=== PATIENT | female | born 1945 | race Caucasian/White ===

== ENCOUNTER 2017-06-19 05:58 | Day surgery (SDC) | payer MEDICARE, OTHER ==
[2017-06-17 10:09] LABS: BASOPHILS # (AUTO) 0.1 X10'3 (0-0.2); BASOPHILS % (AUTO) 0.7 % (0-1); EOSINOPHILS # (AUTO) 0.2 X10'3 (0-0.9); EOSINOPHILS % (AUTO) 2.1 % (0-6); HEMATOCRIT 34.3 % (35.0-45.0); HEMOGLOBIN 11.6 g/dl (12.0-16.0); LYMPHOCYTES % (AUTO) 22.5 % (21-51); MEAN CORPUSCULAR HEMOGLOBIN 29.8 PG (27.0-31.0); MEAN CORPUSCULAR HGB CONC 33.8 % (33.0-36.5); MEAN CORPUSCULAR VOLUME 88.4 FL (78-98); MONOCYTES # (AUTO) 0.7 X10'3 (0-0.9); MONOCYTES % (AUTO) 7.7 % (2-12); NEUTROPHILS # (AUTO) 5.9 X10'3 (1.8-7.7); PLATELET COUNT 264 X10'3 (140-440); RED BLOOD COUNT 3.89 X10'6 (4.20-5.60); RED CELL DISTRIBUTION WIDTH 13.7 % (11.5-14.5); WHITE BLOOD COUNT 8.7 X10'3 (4.5-11.0)
[2017-06-17 10:22] LABS: PARTIAL THROMBOPLASTIN TIME 25 SECONDS (22-32); PROTHROMBIN TIME 9.9 SECONDS (9.0-12.0)
[2017-06-17 10:27] LABS: ALANINE AMINOTRANSFERASE 30 U/L (12-78); ALBUMIN 3.4 G/DL (3.4-5.0); ALBUMIN/GLOBULIN RATIO 0.9 (1.1-1.5); ALKALINE PHOSPHATASE 79 IU/L (46-116); ANION GAP 11 (8-16); ASPARTATE AMINO TRANSFERASE 14 U/L (10-37); BILIRUBIN,TOTAL 0.3 MG/DL (0.1-1.0); BLOOD UREA NITROGEN 23 MG/DL (7-18); BUN/CREATININE RATIO 21.1 (6.6-38.0); CALCIUM 9.5 MG/DL (8.5-10.1); CHLORIDE 105 MMOL/L (99-107); CREATININE 1.09 MG/DL (0.40-0.90); GLUCOSE 260 MG/DL (70-104); POTASSIUM 4.8 MMOL/L (3.5-5.1); SODIUM 141 MMOL/L (135-145); TOTAL PROTEIN 7.2 G/DL (6.4-8.2); eGFR 49 ML/MIN
[2017-06-19] VITALS (13 sets, daily range): BP systolic 115–153; BP diastolic 51–75
[~2017-06-19] VITALS: Ht 160 cm; Wt 84.8 kg
[~2017-06-19 05:58] MED LIST: AMLO2.5T2 PO; ATOR10TA70 PO; GABA-530 PO; LISI40TA4 PO; METF1000 PO; METF10002 PO; METO-539 PO
[2017-06-19] MEDS ORDERED: insulin Lispro (HumaLOG) vial - multi-dose SQ SCH (06:30)
[2017-06-19] MEDS ORDERED: METF500T7 PO (06:30)
[2017-06-19] MEDS ORDERED: CHOL10002 PO (06:30)
[2017-06-19] MEDS ORDERED: glucagon, human recombinant 1mg kit SUBCUT PRN (06:30)
[2017-06-19] MEDS ORDERED: diphenhydrAMINE 25mg capsule PO PRN (06:30)
[2017-06-19] MEDS ORDERED: dextrose 50%-water 50ml dispensing syringe IV PRN ×2 (06:30)
[2017-06-19] MEDS ORDERED: LORazepam 0.5 MG tablet PO PRN (06:30)
[2017-06-19] MEDS ORDERED: GABA-532 PO (06:30)
[2017-06-19] MEDS ORDERED: AMLO-94 PO (06:30)
[2017-06-19] MEDS ORDERED: dextrose ORAL solution 15 GM/59 ML bottle PO PRN ×2 (06:30)
[2017-06-19] MEDS ORDERED: nitroGLYCERIN 0.4mg SUBLingual tab SL PRN (06:30)
[2017-06-19] MEDS ORDERED: normal saline 1000ml 1,000 ML IV SCH (06:30)
[2017-06-19] MEDS ORDERED: pneumococcal 23-VAL P-sac vacc 25 mcg/0.5ml vial IMVAC ONE (07:15)
[2017-06-19] MEDS ORDERED: midazolam 2 mg/2 ml injection ONE (11:08)
[2017-06-19] MEDS ORDERED: LIDOcaine 1%/PF (10mg/ml) 5ml vial ONE (11:08)
[2017-06-19] MEDS ORDERED: fentaNYL/PF 50MCG/1 ML 2ML syringe ONE (11:08)
[2017-06-19] MEDS ORDERED: iohexol 350 MG/ML 50ML vial IV ONE (11:08)
[2017-06-19] MEDS ORDERED: iohexol 350MG/ML 100ml bottle IV ONE (11:09)
[2017-06-19] MEDS ORDERED: ondansetron/PF 4mg/2ml inj IV PRN (12:45)
[2017-06-19] MEDS ORDERED: OXAZEpam 15mg capsule PO PRN (12:45)
[2017-06-19] MEDS ORDERED: proCHLORperazine 10 MG/2 ml inj IV PRN (12:50)
[2017-06-19] MEDS ORDERED: HYDROcodone/acetaminophen 5mg/325mg tablet PO PRN (12:50)
[2017-06-19] MEDS ORDERED: HYDROcodone/acetaminophen 10/325mg tab PO PRN (12:50)
[2017-06-19] MEDS ORDERED: insulin glargine (Lantus) pen - multi-dose SQ SCH (21:00)
== END 2017-06-19 19:00 | disposition home or self-care (01) ==
LOC: SSTAY O 05:58
PROVIDERS: ATTEND Internal Medicine Cardiovascular Disease
DX: I25.10 Atherosclerotic heart disease of native coronary artery without angina pectoris (principal); I34.1 Nonrheumatic mitral (valve) prolapse; I34.0 Nonrheumatic mitral (valve) insufficiency; I10 Essential (primary) hypertension; E78.5 Hyperlipidemia, unspecified; I42.1 Obstructive hypertrophic cardiomyopathy; E11.9 Type 2 diabetes mellitus without complications; Z79.84 Long term (current) use of oral hypoglycemic drugs; Z72.89 Other problems related to lifestyle; Z79.01 Long term (current) use of anticoagulants; Z98.890 Other specified postprocedural states; Z79.899 Other long term (current) drug therapy
CPT/HCPCS: 36415; 71046; 80053; 82948; 85025; 85610; 85730; 93005; 93458; 99152; A6257; C1760; C1769; J1644; J1815; J2001; J2250; J3010; J7030; Q0163; Q9967; A4620

== ENCOUNTER 2017-06-27 05:37 | Day surgery (SDC) | payer MEDICARE, OTHER ==
[2017-06-25 12:23] LABS: BASOPHILS % (AUTO) 0.4 % (0-1); EOSINOPHILS # (AUTO) 0.2 X10'3 (0-0.9); EOSINOPHILS % (AUTO) 1.5 % (0-6); LYMPHOCYTES # (AUTO) 1.8 X10'3 (1.1-4.8); LYMPHOCYTES % (AUTO) 15.4 % (21-51); MEAN CORPUSCULAR HEMOGLOBIN 29.7 PG (27.0-31.0); MEAN CORPUSCULAR HGB CONC 34.1 % (33.0-36.5); MEAN CORPUSCULAR VOLUME 87.2 FL (78-98); MEAN PLATELET VOLUME 8.2 FL (7.4-10.4); MONOCYTES # (AUTO) 0.6 X10'3 (0-0.9); MONOCYTES % (AUTO) 4.8 % (2-12); NEUTROPHILS # (AUTO) 9.2 X10'3 (1.8-7.7); NEUTROPHILS % (AUTO) 77.9 % (42-75); PRE OP HEMATOCRIT 34.8 % (35.0-45.0); PRE OP HEMOGLOBIN 11.9 g/dL (12.0-16.0); PRE OP PLATELET COUNT 285 X10'3 (140-440); RED CELL DISTRIBUTION WIDTH 14.2 % (11.5-14.5)
[2017-06-25 12:24] LABS: CLARITY,URINE TURBID (Clear); COLOR,URINE YELLOW (Yellow); GLUCOSE, URINE NEGATIVE (Neg); KETONES,URINE NEGATIVE (Neg); LEUKOCYTE ESTERASE ,URINE LARGE (Neg); NITRITES, URINE NEGATIVE (Neg); OCCULT BLOOD,URINE MODERATE (Neg); PROTEIN,URINE TRACE mg/dl (Neg); UROBILINOGEN,URINE 0.2 E.U/dL (0.2-1.0)
[2017-06-25 12:27] LABS: UA COLLECTION TYPE CLN CATCH MIDSTREAM
[2017-06-25 12:29] LABS: WBC,URINE TNTC /HPF (0-4)
[2017-06-25 12:33] LABS: BACTERIA,URINE 2+ /HPF (Neg); RBC,URINE 0-2 /HPF (0-2); SQUAMOUS EPITHELIAL CELL,UR MODERATE /LPF (FEW)
[2017-06-25 12:34] LABS: HEMOGLOBIN A1C 7.7 % (4.5-6.2)
[2017-06-25 12:38] LABS: PRE OP PROTIME 9.9 SECONDS (9.0-12.0)
[2017-06-25 12:45] LABS: ALBUMIN 3.5 G/DL (3.4-5.0); ALBUMIN/GLOBULIN RATIO 0.9 (1.1-1.5); ALKALINE PHOSPHATASE 94 IU/L (46-116); BLOOD UREA NITROGEN 27 MG/DL (7-18); BUN/CREATININE RATIO 23.5 (6.6-38.0); CALCIUM 9.2 MG/DL (8.5-10.1); CHLORIDE 103 MMOL/L (99-107); CREATININE 1.15 MG/DL (0.40-0.90); PRE OP ALT 27 U/L (30-65); PRE OP ANION GAP 12 (8-16); PRE OP AST 13 U/L (10-37); PRE OP BILIRUB, TOTAL 0.4 MG/DL (0.0-1.0); PRE OP POTASSIUM 4.8 MMOL/L (3.4-5.1); PRE OP SODIUM 140 MMOL/L (135-145); TOTAL CARBON DIOXIDE 25.3 MMOL/L (24-32); TOTAL PROTEIN 7.3 G/DL (6.4-8.2); eGFR 46 ML/MIN
[2017-06-25 12:48] LABS: PRE OP GLUCOSE 254 MG/DL (70-104)
[~2017-06-27] VITALS: Ht 160 cm; Wt 84.1 kg
[2017-06-27] VITALS (32 sets, daily range): BP systolic 90–146; BP diastolic 42–70
[~2017-06-27 05:37] MED LIST changes: +AMLO10TA13 PO; -AMLO2.5T2 PO; +CHOL10002 PO; +DOCUMENT DATE & TIME OF BETA-BLOCKER PO ONE; -GABA-530 PO; +GABA-532 PO; -METF1000 PO; -METF10002 PO; +METF500T7 PO; +MULT-1085 PO; +ceFOXitin 2 GM ADDvantage bag 100 ML IV ONE; +famotidine 20mg tablet PO ONE
[2017-06-27] MEDS ORDERED: LIDOcaine 1% (10mg/ml) 2ml vial ONE (06:00)
[2017-06-27] MEDS: ringers solution, lacted 1,000 ML IV SCH ×2 (06:07→17:31)
[2017-06-27] MEDS ORDERED: clindamycin phosphate 40gm vag cream ONE (06:50)
[2017-06-27] MEDS ORDERED: BUPIVAcaine/PF 2.5 mg/ml (0.25%) 30ml vial ONE ×2 (06:51→06:52)
[2017-06-27] MEDS ORDERED: epiNEPHrine 1 mg/ml inj ONE (06:51)
[2017-06-27] MEDS ORDERED: neomy sulf/polymyxin B sulf. GU irrigation 1ml amp IR ONE ×2 (06:52→09:35)
[2017-06-27] MEDS ORDERED: vasoPRESSIN 20 units/ml inj. ONE (06:52)
[2017-06-27] MEDS ORDERED: midazolam 2 mg/2 ml injection ONE (07:06)
[2017-06-27] MEDS ORDERED: morphine sulfate /PF 0.5 MG/ML 10mL ampul ONE (07:06)
[2017-06-27] MEDS ORDERED: LIDOcaine 2% (20mg/ml) 5ml vial ONE (07:06)
[2017-06-27] MEDS ORDERED: fentaNYL/PF 50MCG/1 ML 2ML syringe ONE (07:08)
[2017-06-27] MEDS ORDERED: propofol 1000mg/100ml bottle 100 ML IV ONE (07:22)
[2017-06-27] MEDS ORDERED: propofol (Diprivan) 10mg/ml 100ml bottle IV ONE (07:24)
[2017-06-27] MEDS ORDERED: dexamethasone sod phosphate 4mg/ml inj. ONE (08:21)
[2017-06-27] MEDS ORDERED: ondansetron/PF 4mg/2ml inj ONE (08:21)
[2017-06-27] MEDS ORDERED: rocuronium 10mg/ml inj IV ONE (08:21)
[2017-06-27] MEDS ORDERED: phenylephrine 10mg/ml inj IV ONE (08:21)
[2017-06-27] MEDS ORDERED: ePHEDrine 50MG/ML INJ. ONE (08:21)
[2017-06-27] MEDS ORDERED: ringers solution, lacted 1,000 ML IV SCH (08:58)
[2017-06-27] MEDS ORDERED: meperidine/PF 50mg/ml syringe IV PRN (09:00)
[2017-06-27] MEDS ORDERED: HYDROmorphone inj. 0.5 MG/0.5 ML DISP.SYRIN IV PRN ×2 (09:00)
[2017-06-27] MEDS ORDERED: ondansetron/PF 4mg/2ml inj IV PRN (09:00)
[2017-06-27] MEDS ORDERED: fentaNYL/PF 50MCG/1 ML 2ML syringe IV PRN ×2 (09:00)
[2017-06-27] MEDS ORDERED: proCHLORperazine 10 MG/2 ml inj IV PRN (09:00)
[2017-06-27] MEDS ORDERED: neostigmine methylsulfate 1 MG/ML 10ml vial ONE (10:46)
[2017-06-27] MEDS ORDERED: glycopyrrolate 0.2mg/ml inj ONE (10:46)
[2017-06-27] MEDS ORDERED: ketorolac trometh. 30mg/ml inj. ONE (10:47)
[2017-06-27] MEDS ORDERED: mag hydrox/Alum hydrox/simeth 30ml oral suspension PO PRN (10:50)
[2017-06-27] MEDS ORDERED: HYDROcodone/acetaminophen 10/325mg tab PO PRN ×2 (10:50)
[2017-06-27] MEDS ORDERED: metoclopramide 5 mg/ml inj IV PRN (10:50)
[2017-06-27] MEDS ORDERED: diphenhydrAMINE 50 mg/ml inj IV PRN (10:50)
[2017-06-27] MEDS ORDERED: normal saline 500ml IV soln 500 ML IV PRN (10:50)
[2017-06-27] MEDS ORDERED: LORazepam 2 mg/ml vial IV PRN (10:50)
[2017-06-27] MEDS ORDERED: albuterol 2.5 MG/3 ML nebule NEB ONE (12:25)
[2017-06-27] MEDS: simethicone 80mg chew tab PO SCH ×2 (13:00→17:30)
[2017-06-27] MEDS ORDERED: insulin regular, human 10 units/0.1 ml syringe IV ONE ×2 (13:35→14:25)
[2017-06-27] MEDS: METFORMIN HCL 500 MG PO SCH (20:00)
[2017-06-27] MEDS: docusate sod 100mg capsule PO SCH (20:38)
[2017-06-27] MEDS: gabapentin 300mg capsule PO SCH (20:39)
[2017-06-27] MEDS: lisinopril 20mg tablet PO SCH (20:41)
[2017-06-28] VITALS: BP 129/71
[2017-06-28 06:01] LABS: BASOPHILS % (AUTO) 0.1 % (0-1); EOSINOPHILS % (AUTO) 0 % (0-6); HEMOGLOBIN 10.2 g/dl (12.0-16.0); LYMPHOCYTES # (AUTO) 1.5 X10'3 (1.1-4.8); LYMPHOCYTES % (AUTO) 10.2 % (21-51); MEAN CORPUSCULAR HEMOGLOBIN 29.7 PG (27.0-31.0); MEAN CORPUSCULAR HGB CONC 33.9 % (33.0-36.5); MEAN CORPUSCULAR VOLUME 87.7 FL (78-98); MEAN PLATELET VOLUME 8.8 FL (7.4-10.4); MONOCYTES # (AUTO) 0.9 X10'3 (0-0.9); MONOCYTES % (AUTO) 6.1 % (2-12); NEUTROPHILS # (AUTO) 12.1 X10'3 (1.8-7.7); NEUTROPHILS % (AUTO) 83.6 % (42-75); PLATELET COUNT 222 X10'3 (140-440); RED BLOOD COUNT 3.43 X10'6 (4.20-5.60); RED CELL DISTRIBUTION WIDTH 13.9 % (11.5-14.5); WHITE BLOOD COUNT 14.5 X10'3 (4.5-11.0)
[2017-06-28 06:17] LABS: ALBUMIN 2.8 G/DL (3.4-5.0); ANION GAP 8 (8-16); BLOOD UREA NITROGEN 20 MG/DL (7-18); BUN/CREATININE RATIO 20.6 (6.6-38.0); CALCIUM 8.7 MG/DL (8.5-10.1); CHLORIDE 108 MMOL/L (99-107); CREATININE 0.97 MG/DL (0.40-0.90); GLUCOSE 186 MG/DL (70-104); POTASSIUM 4.9 MMOL/L (3.5-5.1); SODIUM 142 MMOL/L (135-145); TOTAL CARBON DIOXIDE 25.7 MMOL/L (24-32); eGFR 56 ML/MIN
[2017-06-28 07:00] VITALS: BP 138/62
[2017-06-28] MEDS: simethicone 80mg chew tab PO SCH (07:29)
[2017-06-28] MEDS: docusate sod 100mg capsule PO SCH (07:30)
[2017-06-28] MEDS: lisinopril 20mg tablet PO SCH (07:30)
[2017-06-28] MEDS: gabapentin 300mg capsule PO SCH (07:31)
[2017-06-28] MEDS ORDERED: amLODIPine 5mg tablet PO SCH (08:00)
[2017-06-28] MEDS ORDERED: enoxaparin 40mg/0.4ml syringe SQ SCH (08:00)
[2017-06-28] MEDS ORDERED: metoprolol succinate 25mg (24-HOUR) SR. Tablet PO SCH (08:00)
[2017-06-28] MEDS: METFORMIN HCL 500 MG PO SCH (09:00)
[2017-06-28 11:00] VITALS: BP 124/60
[2017-06-28] MEDS ORDERED: atorvastatin 10mg tablet PO SCH (21:00)
[2017-06-29] MEDS ORDERED: multivitamins, therapeutics tablet PO SCH (08:00)
[2017-06-29] MEDS ORDERED: vitamin D (cholecalciferol) 1,000 unit tablet PO SCH (08:00)
== END 2017-06-28 13:01 | disposition home or self-care (01) ==
LOC: PAS 05:37 → SUR 3N 15:03 → PAS 06-28 13:01
PROVIDERS: ATTEND Obstetrics & Gynecology Obstetrics
DX: N81.3 Complete uterovaginal prolapse (principal); N83.312 Acquired atrophy of left ovary; N81.6 Rectocele; I25.10 Atherosclerotic heart disease of native coronary artery without angina pectoris; E11.9 Type 2 diabetes mellitus without complications; G43.909 Migraine, unspecified, not intractable, without status migrainosus; I10 Essential (primary) hypertension; R06.02 Shortness of breath; E78.5 Hyperlipidemia, unspecified; I34.1 Nonrheumatic mitral (valve) prolapse; I42.8 Other cardiomyopathies; K21.9 Gastro-esophageal reflux disease without esophagitis; Z72.89 Other problems related to lifestyle; Z79.1 Long term (current) use of non-steroidal anti-inflammatories (NSAID); Z79.84 Long term (current) use of oral hypoglycemic drugs; Z79.01 Long term (current) use of anticoagulants; Z79.899 Other long term (current) drug therapy; Z98.890 Other specified postprocedural states; Z84.89 Family history of other specified conditions; Z87.09 Personal history of other diseases of the respiratory system
CPT/HCPCS: 36415; 57260; 57283; 58552; 80048; 80053; 81001; 82948; 83036; 85025; 85610; 85730; 86885; 86900; 86901; 87070; 87088; 94640; 94760; A4315; J0171; J1100; J1650; J1815; J1885; J2001; J2175; J2250; J2274; J2370; J2405; J2704; J2710; J3010; J3490; J7030; J7120; 88305; 94660; A7000

== ENCOUNTER 2017-10-11 08:25 | Day surgery (SDC) | payer MEDICARE, OTHER ==
[~2017-10-11 08:25] MED LIST changes: +CEPH-572 PO; -DOCUMENT DATE & TIME OF BETA-BLOCKER PO ONE; -ceFOXitin 2 GM ADDvantage bag 100 ML IV ONE; -famotidine 20mg tablet PO ONE
[2017-10-11] MEDS: LIDOcaine 2% 5ml jelly ONE (10:18)
== END 2017-10-11 10:34 | disposition home or self-care (01) ==
LOC: WOUND CARE 08:25
PROVIDERS: ATTEND Surgery
DX: E11.621 Type 2 diabetes mellitus with foot ulcer (principal); L97.511 Non-pressure chronic ulcer of other part of right foot limited to breakdown of skin; E11.622 Type 2 diabetes mellitus with other skin ulcer; L98.492 Non-pressure chronic ulcer of skin of other sites with fat layer exposed; E11.65 Type 2 diabetes mellitus with hyperglycemia; E11.42 Type 2 diabetes mellitus with diabetic polyneuropathy; M77.30 Calcaneal spur, unspecified foot; Z79.2 Long term (current) use of antibiotics; Z79.84 Long term (current) use of oral hypoglycemic drugs
CPT/HCPCS: 11042; 36416; 82948; 87070; 87075; 87076; 87077; 87102; 87186; A6021; A6206; L3260

== ENCOUNTER 2017-10-18 10:03 | Day surgery (SDC) | payer MEDICARE, OTHER ==
[~2017-10-18 10:03] MED LIST changes: -CEPH-572 PO
[2017-10-18] MEDS ORDERED: LIDOcaine 2% 5ml jelly ONE (11:40)
== END 2017-10-18 12:26 | disposition home or self-care (01) ==
LOC: WOUND CARE 10:03
PROVIDERS: ATTEND Surgery
DX: E11.621 Type 2 diabetes mellitus with foot ulcer (principal); L97.512 Non-pressure chronic ulcer of other part of right foot with fat layer exposed; E11.65 Type 2 diabetes mellitus with hyperglycemia; E11.42 Type 2 diabetes mellitus with diabetic polyneuropathy; M77.30 Calcaneal spur, unspecified foot; Z79.2 Long term (current) use of antibiotics; Z79.84 Long term (current) use of oral hypoglycemic drugs
CPT/HCPCS: 11042; 36416; 82948; A6021; A6209; A6222

== ENCOUNTER 2017-10-25 10:40 | Day surgery (SDC) | payer MEDICARE, OTHER ==
[~2017-10-25 10:40] MED LIST changes: +LIDOcaine 2% 5ml jelly ONE
== END 2017-10-28 11:02 | disposition home or self-care (01) ==
LOC: WOUND CARE 10:40
PROVIDERS: ATTEND Surgery
DX: E11.621 Type 2 diabetes mellitus with foot ulcer (principal); L97.512 Non-pressure chronic ulcer of other part of right foot with fat layer exposed; E11.65 Type 2 diabetes mellitus with hyperglycemia; E11.42 Type 2 diabetes mellitus with diabetic polyneuropathy; M77.30 Calcaneal spur, unspecified foot; Z79.2 Long term (current) use of antibiotics; Z79.84 Long term (current) use of oral hypoglycemic drugs
CPT/HCPCS: 11044; 36416; 82948; A6206; A6209

== ENCOUNTER 2017-11-01 08:57 | Day surgery (SDC) | payer MEDICARE, OTHER ==
[~2017-11-01 08:57] MED LIST changes: -LIDOcaine 2% 5ml jelly ONE
[2017-11-01] MEDS ORDERED: LIDOcaine 2% 5ml jelly ONE (10:13)
== END 2017-11-01 10:58 | disposition home or self-care (01) ==
LOC: WOUND CARE 08:57
PROVIDERS: ATTEND Surgery
DX: E11.621 Type 2 diabetes mellitus with foot ulcer (principal); L97.512 Non-pressure chronic ulcer of other part of right foot with fat layer exposed; E11.65 Type 2 diabetes mellitus with hyperglycemia; E11.42 Type 2 diabetes mellitus with diabetic polyneuropathy; M77.30 Calcaneal spur, unspecified foot; Z79.2 Long term (current) use of antibiotics; Z79.84 Long term (current) use of oral hypoglycemic drugs
CPT/HCPCS: 11042; 36416; 82948; A6021

== ENCOUNTER 2017-11-08 09:06 | Day surgery (SDC) | payer MEDICARE, OTHER ==
[2017-11-08] MEDS ORDERED: LIDOcaine/PRILOcaine 5gm cream TP ONE (10:44)
== END 2017-11-08 11:14 | disposition home or self-care (01) ==
LOC: WOUND CARE 09:06
PROVIDERS: ATTEND Surgery
DX: E11.621 Type 2 diabetes mellitus with foot ulcer (principal); L97.512 Non-pressure chronic ulcer of other part of right foot with fat layer exposed; E11.65 Type 2 diabetes mellitus with hyperglycemia; E11.42 Type 2 diabetes mellitus with diabetic polyneuropathy; M77.30 Calcaneal spur, unspecified foot; Z79.2 Long term (current) use of antibiotics; Z79.84 Long term (current) use of oral hypoglycemic drugs
CPT/HCPCS: 97597; A6021; A6206

== ENCOUNTER 2017-11-22 08:59 | Day surgery (SDC) | payer MEDICARE, OTHER ==
[2017-11-22] MEDS ORDERED: LIDOcaine/PRILOcaine 5gm cream TP ONE (09:48)
== END 2017-11-22 10:37 | disposition home or self-care (01) ==
LOC: WOUND CARE 08:59
PROVIDERS: ATTEND Surgery
DX: E11.621 Type 2 diabetes mellitus with foot ulcer (principal); L97.512 Non-pressure chronic ulcer of other part of right foot with fat layer exposed; E11.65 Type 2 diabetes mellitus with hyperglycemia; E11.42 Type 2 diabetes mellitus with diabetic polyneuropathy; M77.30 Calcaneal spur, unspecified foot; Z79.2 Long term (current) use of antibiotics; Z79.84 Long term (current) use of oral hypoglycemic drugs
CPT/HCPCS: 36416; 82948; 97597; A6021

== ENCOUNTER 2017-12-05 08:57 | Day surgery (SDC) | payer MEDICARE, OTHER | END 2017-12-05 10:43 | disposition home or self-care (01) | LOC: WOUND CARE 08:57 | PROVIDERS: ATTEND Surgery | DX: E11.621 Type 2 diabetes mellitus with foot ulcer (principal); L97.512 Non-pressure chronic ulcer of other part of right foot with fat layer exposed; E11.65 Type 2 diabetes mellitus with hyperglycemia; E11.42 Type 2 diabetes mellitus with diabetic polyneuropathy; M77.30 Calcaneal spur, unspecified foot; Z79.2 Long term (current) use of antibiotics; Z79.84 Long term (current) use of oral hypoglycemic drugs | CPT/HCPCS: 36416; 82948; 97597; A6021; A6222 ==

== ENCOUNTER 2017-12-12 09:00 | Day surgery (SDC) | payer MEDICARE, OTHER | END 2017-12-12 10:29 | disposition home or self-care (01) | LOC: WOUND CARE 09:00 | PROVIDERS: ATTEND Surgery | DX: E11.621 Type 2 diabetes mellitus with foot ulcer (principal); L97.512 Non-pressure chronic ulcer of other part of right foot with fat layer exposed; E11.40 Type 2 diabetes mellitus with diabetic neuropathy, unspecified; E11.65 Type 2 diabetes mellitus with hyperglycemia; I77.1 Stricture of artery; I10 Essential (primary) hypertension; K21.9 Gastro-esophageal reflux disease without esophagitis; E78.5 Hyperlipidemia, unspecified; Z79.899 Other long term (current) drug therapy; Z95.1 Presence of aortocoronary bypass graft; Z79.84 Long term (current) use of oral hypoglycemic drugs; Z79.2 Long term (current) use of antibiotics | CPT/HCPCS: 36416; 82948; 97597; A6021; A6222 ==

== ENCOUNTER 2017-12-19 09:40 | Outpatient (CLI) | payer MEDICARE, OTHER | END 2017-12-19 12:15 | disposition home or self-care (01) | LOC: WOUND CARE 09:40 | PROVIDERS: ATTEND Surgery | DX: E11.621 Type 2 diabetes mellitus with foot ulcer (principal); L97.518 Non-pressure chronic ulcer of other part of right foot with other specified severity; E11.40 Type 2 diabetes mellitus with diabetic neuropathy, unspecified; E11.65 Type 2 diabetes mellitus with hyperglycemia; I77.1 Stricture of artery; I10 Essential (primary) hypertension; K21.9 Gastro-esophageal reflux disease without esophagitis; E78.5 Hyperlipidemia, unspecified; Z79.899 Other long term (current) drug therapy; Z95.1 Presence of aortocoronary bypass graft; Z79.84 Long term (current) use of oral hypoglycemic drugs; Z79.2 Long term (current) use of antibiotics | CPT/HCPCS: 36416; 82948; 99215 ==

== ENCOUNTER 2018-12-24 11:24 | Emergency (ER) | payer MEDICARE, OTHER ==
[~2018-12-24] VITALS: Ht 160 cm; Wt 85.0 kg
[~2018-12-24 11:24] MED LIST changes: +METF500T20 PO; -METF500T7 PO
[2018-12-24 11:40] VITALS: BP 137/62
[2018-12-24 14:23] LABS: BASOPHILS # (AUTO) 0.1 X10'3 (0-0.2); BASOPHILS % (AUTO) 0.7 % (0-1); EOSINOPHILS # (AUTO) 0.2 X10'3 (0-0.9); EOSINOPHILS % (AUTO) 1.5 % (0-6); HEMATOCRIT 31.5 % (35.0-45.0); HEMOGLOBIN 10.3 g/dl (12.0-16.0); LYMPHOCYTES # (AUTO) 2.1 X10'3 (1.1-4.8); LYMPHOCYTES % (AUTO) 20.5 % (21-51); MEAN CORPUSCULAR HEMOGLOBIN 29.1 PG (27.0-31.0); MEAN CORPUSCULAR HGB CONC 32.8 g/dL (33.0-36.5); MEAN CORPUSCULAR VOLUME 88.9 FL (78-98); MEAN PLATELET VOLUME 8.2 FL (7.4-10.4); MONOCYTES # (AUTO) 0.9 X10'3 (0-0.9); MONOCYTES % (AUTO) 9.2 % (2-12); NEUTROPHILS % (AUTO) 68.1 % (42-75); PLATELET COUNT 326 X10'3 (140-440); RED BLOOD COUNT 3.54 X10'6 (4.20-5.60); WHITE BLOOD COUNT 10.2 X10'3 (4.5-11.0)
[2018-12-24 14:25] LABS: CLARITY,URINE SLIGHTLY CLOUDY (Clear); COLOR,URINE YELLOW (Yellow); GLUCOSE, URINE NEGATIVE (Neg); KETONES,URINE NEGATIVE (Neg); LEUKOCYTE ESTERASE ,URINE MODERATE (Neg); NITRITES, URINE NEGATIVE (Neg); OCCULT BLOOD,URINE NEGATIVE (Neg); PH,URINE 5.5 (4.8-8.0); PROTEIN,URINE NEGATIVE (Neg); UA COLLECTION TYPE CLN CATCH MIDSTREAM; UROBILINOGEN,URINE 0.2 E.U/dL (0.2-1.0)
[2018-12-24 14:32] LABS: TRANSITIONAL EPI CELLS,URINE MODERATE /HPF
[2018-12-24 14:33] LABS: BACTERIA,URINE 2+ /HPF (Neg); MUCUS STRANDS FEW /LPF (Neg); RBC,URINE 0-2 /HPF (0-2); SQUAMOUS EPITHELIAL CELL,UR MODERATE /LPF (FEW); WBC CLUMPS,URINE FEW /HPF (NEGATIVE); WBC,URINE 0-4 /HPF (0-4)
[2018-12-24 14:33] LABS: ALANINE AMINOTRANSFERASE 18 U/L (12-78); ALBUMIN 3.4 G/DL (3.4-5.0); ALBUMIN/GLOBULIN RATIO 0.7 (1.1-1.5); ALKALINE PHOSPHATASE 105 IU/L (46-116); ANION GAP 11 (8-16); ASPARTATE AMINO TRANSFERASE 11 U/L (10-37); BILIRUBIN,TOTAL 0.4 MG/DL (0.1-1.0); BLOOD UREA NITROGEN 30 MG/DL (7-18); BUN/CREATININE RATIO 18.4 (6.6-38.0); CALCIUM 9.9 MG/DL (8.5-10.1); CHLORIDE 104 MMOL/L (99-107); CREATININE 1.63 MG/DL (0.40-0.90); GLUCOSE 122 MG/DL (70-104); POTASSIUM 4.8 MMOL/L (3.5-5.1); SODIUM 142 MMOL/L (135-145); TOTAL CARBON DIOXIDE 27.1 MMOL/L (24-32); TOTAL PROTEIN 8.1 G/DL (6.4-8.2); eGFR 31 ML/MIN
[2018-12-24] MEDS ORDERED: CEPH-572 PO (14:44)
== END 2018-12-24 14:50 | disposition home or self-care (01) ==
LOC: ER 11:25
DX: R22.42 Localized swelling, mass and lump, left lower limb (principal); E11.610 Type 2 diabetes mellitus with diabetic neuropathic arthropathy; Z79.2 Long term (current) use of antibiotics; Z79.899 Other long term (current) drug therapy
CPT/HCPCS: 36415; 80053; 81001; 85025; 87077; 87088; 87186; 93971; 99284

== ENCOUNTER 2019-04-27 07:50 | Day surgery (SDC) | payer MEDICARE, OTHER | END 2019-04-27 12:32 | disposition home or self-care (01) | LOC: WOUND CARE 07:50 | PROVIDERS: ATTEND Surgery | DX: E11.621 Type 2 diabetes mellitus with foot ulcer (principal); L97.512 Non-pressure chronic ulcer of other part of right foot with fat layer exposed; E11.40 Type 2 diabetes mellitus with diabetic neuropathy, unspecified; E11.65 Type 2 diabetes mellitus with hyperglycemia; I77.1 Stricture of artery; I10 Essential (primary) hypertension; K21.9 Gastro-esophageal reflux disease without esophagitis; E78.5 Hyperlipidemia, unspecified; Z79.899 Other long term (current) drug therapy; Z95.1 Presence of aortocoronary bypass graft; Z79.84 Long term (current) use of oral hypoglycemic drugs; Z79.2 Long term (current) use of antibiotics | CPT/HCPCS: 36416; 82948; 97597 ==

== ENCOUNTER 2019-05-04 11:36 | Outpatient (CLI) | payer MEDICARE, OTHER | END 2019-05-04 12:30 | disposition home or self-care (01) | LOC: WOUND CARE 11:36 | PROVIDERS: ATTEND Surgery | DX: E11.621 Type 2 diabetes mellitus with foot ulcer (principal); L97.512 Non-pressure chronic ulcer of other part of right foot with fat layer exposed; E11.40 Type 2 diabetes mellitus with diabetic neuropathy, unspecified; E11.65 Type 2 diabetes mellitus with hyperglycemia; I77.1 Stricture of artery; I10 Essential (primary) hypertension; K21.9 Gastro-esophageal reflux disease without esophagitis; E78.5 Hyperlipidemia, unspecified; Z79.899 Other long term (current) drug therapy; Z95.1 Presence of aortocoronary bypass graft; Z79.84 Long term (current) use of oral hypoglycemic drugs; Z79.2 Long term (current) use of antibiotics | CPT/HCPCS: 36416; 82948; G0463 ==

== ENCOUNTER 2020-09-01 14:14 | Emergency (ER) | payer MEDICARE, OTHER ==
[~2020-09-01] VITALS: Ht 160 cm; Wt 81.4 kg
[~2020-09-01 14:14] MED LIST changes: +LISI40TA13 PO; -LISI40TA4 PO; +METF-900 PO; -METF500T20 PO
[2020-09-01 14:55] LABS: BASOPHILS # (AUTO) 0.1 X10'3 (0-0.2); BASOPHILS % (AUTO) 0.5 % (0-1); EOSINOPHILS # (AUTO) 0.2 X10'3 (0-0.9); EOSINOPHILS % (AUTO) 1.5 % (0-6); HEMATOCRIT 31.2 % (35.0-45.0); HEMOGLOBIN 10.4 g/dl (12.0-16.0); LYMPHOCYTES # (AUTO) 1.8 X10'3 (1.1-4.8); LYMPHOCYTES % (AUTO) 16.5 % (21-51); MEAN CORPUSCULAR HEMOGLOBIN 30.5 PG (27.0-31.0); MEAN CORPUSCULAR HGB CONC 33.4 g/dL (33.0-36.5); MEAN CORPUSCULAR VOLUME 91.5 FL (78-98); MEAN PLATELET VOLUME 8.3 FL (7.4-10.4); MONOCYTES # (AUTO) 0.8 X10'3 (0-0.9); MONOCYTES % (AUTO) 7.5 % (2-12); NEUTROPHILS # (AUTO) 8.2 X10'3 (1.8-7.7); PLATELET COUNT 315 X10'3 (140-440); RED BLOOD COUNT 3.41 X10'6 (4.20-5.60); RED CELL DISTRIBUTION WIDTH 13.4 % (11.5-14.5); WHITE BLOOD COUNT 11.1 X10'3 (4.5-11.0)
[2020-09-01 15:06] LABS: ALANINE AMINOTRANSFERASE 16 U/L (12-78); ALBUMIN 3.1 G/DL (3.4-5.0); ALBUMIN/GLOBULIN RATIO 0.7 (1.1-1.5); ALKALINE PHOSPHATASE 93 IU/L (46-116); ANION GAP 8 (8-16); ASPARTATE AMINO TRANSFERASE 11 U/L (10-37); BILIRUBIN,TOTAL 0.3 MG/DL (0.1-1.0); BLOOD UREA NITROGEN 46 MG/DL (7-18); BUN/CREATININE RATIO 16.6 (6.6-38.0); C-REACTIVE PROTEIN 8.73 MG/DL (0.0-0.5); CALCIUM 8.7 MG/DL (8.5-10.1); CHLORIDE 104 MMOL/L (99-107); CREATININE 2.77 MG/DL (0.40-0.90); GLUCOSE 238 MG/DL (70-104); POTASSIUM 4.9 MMOL/L (3.5-5.1); SODIUM 141 MMOL/L (135-145); TOTAL CARBON DIOXIDE 29.2 MMOL/L (24-32); TOTAL PROTEIN 7.3 G/DL (6.4-8.2); eGFR 17 ML/MIN
[2020-09-01] MEDS ORDERED: vancomycin/NS 1 GM ADD-VANTAGE 250 ML IV ONE (16:05)
[2020-09-01] MEDS ORDERED: piperacillin/tazo 3.375gm/50ml 50 ML IV ONE (16:05)
[2020-09-01] MEDS ORDERED: METO-395 PO (16:22)
[2020-09-01] MEDS ORDERED: LISI10TA27 PO (16:22)
[2020-09-01] MEDS ORDERED: ONDA4TAB12 PO (16:22)
[2020-09-01] MEDS ORDERED: OMEP-50 PO (16:22)
[2020-09-01] MEDS ORDERED: ATOR20TA66 PO (16:22)
[2020-09-01] MEDS ORDERED: METO5TAB98 PO (16:22)
[2020-09-01] MEDS ORDERED: FURO40TA4 PO (16:22)
[2020-09-01] MEDS ORDERED: GLIM4TAB7 PO ×2 (16:22→16:33)
[2020-09-01] MEDS ORDERED: INSU100I25 SQ (16:33)
[2020-09-01 20:35] LABS: MAGNESIUM 2.7 MG/DL (1.5-2.4)
[2020-09-01 22:09] VITALS: BP 127/50
== END 2020-09-01 22:13 | disposition short-term general hospital (02) ==
LOC: ER 14:15
DX: M86.9 Osteomyelitis, unspecified (principal); L02.611 Cutaneous abscess of right foot; E11.9 Type 2 diabetes mellitus without complications; Z88.8 Allergy status to other drugs, medicaments and biological substances; Z79.4 Long term (current) use of insulin; Z79.899 Other long term (current) drug therapy
CPT/HCPCS: 36415; 73630; 80053; 82948; 83735; 85025; 85651; 86140; 96365; 96366; 96367; 99285; J2543; J3370